=== PATIENT | male | born 1980 | race Caucasian/White ===

== ENCOUNTER 2021-08-12 11:40 | Emergency (ER) | payer BC, SELFPAY ==
--- NOTE | 2021-08-12 11:50 | ED.URI ---
HPI - URI/Sore Throat General Chief Complaint: Upper Respiratory Infection Stated Complaint: Congestion Time Seen by Provider: 08/12/21 11:51 Source: patient and RN notes reviewed Mode of arrival: ambulatory Limitations: no limitations History of Present Illness HPI Narrative: Ambrosio is a 40-year-old male patient who ambulated into the [facility] today. Patient states he has been sick for the last 3 days. Patient states that on 08/09/2021 he developed sinus and nasal congestion cough runny nose chills his lower back hurting and fever. Patient states he normally takes Advil Cold and Sinus when he gets a sinus headache. Patient states the Advil is not helping. Related Data Allergies Allergy/AdvReac Type Severity Reaction Status Date / Time No Known Allergies Allergy Unverified 08/12/21 11:59 Review of Systems Review of Systems: CONSTITUTIONAL: + body aches,+ fever,+ chills, + sweats. EYES: Denies visual changes, redness, or discharge. ENT: + rhinorrhea, +congestion, sore throat, or otalgia. CARDIOVASCULAR: Denies chest pain, palpitations, or edema. RESPIRATORY: + cough denies dyspnea. GASTROINTESTINAL: Denies abdominal pain, nausea, vomiting, or diarrhea. GENITOURINARY: Denies dysuria or hematuria. SKIN: Denies rash, itching, or wounds. MUSCULOSKELETAL: Denies back pain, joint pain, or myalgia. NEUROLOGIC: Denies headache, numbness, tingling, or weakness. PSYCH: Denies depression or anxiety. All systems reviewed & are unremarkable except as noted in HPI and below PMFSH Comments At time of signature, I have reviewed and agree with nursing past medical, surgical, social and family history unless otherwise noted. Please see nursing chart for further information. There is no relevant family history pertinent to the presenting complaint Exam Narrative: GENERAL: Well-appearing, well-nourished, and in no acute distress. HEAD: Normocephalic, atraumatic. EYES: EOMI. No redness or drainage. Conjunctivae normal. ENT: Mucous membranes pink and moist. Nasal membranes are erythematous with clear rhinorrhea. Bilateral tympanic membranes are dull with moderate bulging and no erythema. Posterior pharynx is erythemic without exudate moderate edema and clear postnasal drainage. Uvula midline. NECK: Normal AROM. Supple. Right anterior cervical lymphadenopathy. CHEST: No respiratory distress. Clear to auscultation. MUSCULOSKELETAL: No bony tenderness. EXTREMITIES: Normal range of motion. No edema. SKIN: Warm, dry, no rash. Capillary refill normal. Normal skin turgor. NEURO: No focal deficits. Alert and oriented x3. Gait steady. PSYCH: Normal affect. No signs of depression or anxiety. Course Vital Signs Vital signs: Vital Signs Temperature 37.3 C 08/12/21 11:55 Pulse Rate 86 08/12/21 11:55 Respiratory Rate 18 08/12/21 11:55 Blood Pressure 130/77 08/12/21 11:55 Pulse Oximetry 100 08/12/21 11:55 Temperature 37.3 C 08/12/21 11:55 Pulse Rate 86 08/12/21 11:55 Respiratory Rate 18 08/12/21 11:55 Blood Pressure 130/77 08/12/21 11:55 Pulse Oximetry 100 08/12/21 11:55 Reviewed. Pt has been instructed to follow up with his PCP regarding his elevated blood pressure today. MDM - URI/Sore Throat MDM Narrative Medical decision making narrative: Patient's influenza A was positive. Patient patient may take Motrin or Tylenol for fever or pain. May continue to use [id number] cold medicine as directed. Follow-up as needed with your primary care physician Differential Diagnosis Differential diagnosis: Likely upper respiratory infection, viral infection and bronchitis Medical Records Attestation: I reviewed the patient's medical records. Lab Data Attestation: I reviewed the patient's lab results. Labs: Lab Results 08/12/21 Range/Units 11:55 POC SARS CoV-2 Ag Negative (Negative) Influenza A Screen Positive Reference Range: Nega
[2021-08-12 11:55] VITALS: BP 130/77; PULSE 86; RESP 18; TEMP 37.3; O2SAT 100
== END 2021-08-12 12:27 | disposition home or self-care (01) ==
PROVIDERS: Emergency Provider Nurse Practitioner Family
DX: J11.1 Influenza due to unidentified influenza virus with other respiratory manifestations (principal); Z20.822 Contact with and (suspected) exposure to COVID-19
CPT/HCPCS: 87426; 87804; 99213; C9803; G0463

== ENCOUNTER 2023-04-01 11:16 | Emergency (ER) | payer BC, SELFPAY ==
[2023-04-01 11:21] VITALS: BP 136/85; PULSE 107; RESP 18; TEMP 36.6; O2SAT 100
--- NOTE | 2023-04-01 11:55 | ED.GENADULT ---
HPI - General Adult General Chief complaint: Skin/Abscess/Foreign Body Stated complaint: abcess Time Seen by Provider: 04/01/23 11:27 Source: patient Mode of arrival: ambulatory Limitations: no limitations History of Present Illness HPI narrative: This is a 42-year-old male who presents ED with chief complaint of skin lesion to the mid back area. He states this has been present for the past several months to year. He reports that he has been undergoing a big move and was moving furniture 2 weeks ago which seemed to worsen the lesion. He reports it became more swollen and a little more red underneath. States it causes soreness in certain positions but has not been overly painful. Denies any wounds or open lesions to the area. Denies drainage. Denies fevers, chills, nausea, vomiting. States he is feeling fine otherwise and has no further complaints. Related Data Allergies Allergy/AdvReac Type Severity Reaction Status Date / Time No Known Allergies Allergy Unverified 08/12/21 11:59 Review of Systems Review of Systems: All systems as dictated in HPI Exam Narrative: GENERAL: Well-appearing, well-nourished, and in no acute distress. HEAD: Normocephalic, atraumatic. EYES: PERRLA and EOMI. ENT: Nares clear, no rhinorrhea or epistaxis. Mucous membranes moist. Oropharynx without tonsillar hypertrophy exudate or other lesions. NECK: Supple. No adenopathy or masses. CHEST: No respiratory distress. Clear to auscultation. No wheezes rales or rhonchi HEART: Regular rate and rhythm. No murmur heard. Normal peripheral pulses. ABDOMEN: Soft, nontender, nondistended, normal active bowel sounds. MSK: Normal range of motion. No edema. SKIN: Cystlike lesion to the mid thoracic back just right of the spine. The lesion is firm. Telangiectasias present. Mild redness inferior to the lesion. No tenderness present. No drainage. No fluctuance. Warm, dry, no rash. NEURO: Alert and oriented x3. No focal deficits. PSYCH: Normal mood and affect. Course Vital Signs Vital signs: Vital Signs Temperature 97.8 F 04/01/23 11:21 Pulse Rate 107 H 04/01/23 11:21 Respiratory Rate 18 04/01/23 11:21 Blood Pressure 136/85 04/01/23 11:21 Pulse Oximetry 100 08/06/23 11:21 Oxygen Delivery Room Air 04/01/23 11:21 Temperature 97.8 F 04/01/23 11:21 Pulse Rate 107 H 04/01/23 11:21 Respiratory Rate 18 04/01/23 11:21 Blood Pressure 136/85 04/01/23 11:21 Pulse Oximetry 100 04/01/23 11:21 Oxygen Delivery Room Air 04/01/23 11:21 Medical Decision Making MDM Narrative Medical decision making narrative: This is a 42-year-old male who presents to the ED with chief complaint of a skin lesion to the mid back. Vitals are normal. Exam shows a cystic-like lesion to the cutaneous right thoracic back area. Given that he has had little to no pain, only soreness combined with the fact that has been going on for several months to a year; but this is more likely cystic in nature. Exam is not consistent with a purulent abscess. I discussed this with the patient and offered incision and drainage but warned that the lesion may just reappear if it is a cyst. He elects to forego the procedure today and would like to see a general surgeon for follow-up. Return precautions were given and supportive measures for home discussed. General surgery referral given. He is understanding and agreeable with plan for discharge and follow-up at this time. Vital Signs Vital Signs: Vital Signs Temperature 97.8 F 04/01/23 11:21 Pulse Rate 107 H 04/01/23 11:21 Respiratory Rate 18 04/01/23 11:21 Blood Pressure 136/85 04/01/23 11:21 Pulse Oximetry 100 04/01/23 11:21 Oxygen Delivery Room Air 04/01/23 11:21 Temperature 97.8 F 04/01/23 11:21 Pulse Rate 107 H 04/01/23 11:21 Respiratory Rate 18 04/01/23 11:21 Blood Pressure 136/85 04/01/23 11:21 Pulse Oximetry 100 04/01/23 11:21 Oxygen Delivery Domi
== END 2023-04-01 12:05 | disposition home or self-care (01) ==
PROVIDERS: Emergency Provider Physician Assistant
DX: L03.312 Cellulitis of back [any part except buttock and flank] (principal)
CPT/HCPCS: 99283